=== PATIENT | male | born 1955 | race African-American/Black ===

== ENCOUNTER 2022-01-09 17:58 | Emergency (ER) | payer OTHER, MEDICAID ==
[~2022-01-09] VITALS: Ht 177.8 cm; Wt 60.8 kg
[~2022-01-09 17:58] MED LIST: DILT60TA3 PO; LACT1CAP58 PO; POTA-197 PO; PRO40 PO; TAMS-11 PO; TRAM50TA2 PO
[2022-01-09 18:00] VITALS: BP_SYST 121
[2022-01-09] MEDS ORDERED: NACL 0.9% 1,000 ML IV ONE (18:15)
[2022-01-09 19:11] LABS: HEMATOCRIT 27.8 % (36-54); HEMOGLOBIN 9.4 g/dL (14.0-18.0); MEAN CORPUSCULAR HEMOGLOBIN 32 pg (27-31); MEAN CORPUSCULAR HGB CONC 34 % (32-36); MEAN CORPUSCULAR VOLUME 94 fL (79.0-98.0); PLATELET COUNT (AUTO) 391 K/uL (130-430); RED BLOOD CELL COUNT(AUTO) 2.98 MIL/uL (4.2-6.2); RED CELL DISTRIBUTION WIDTH 15.9 % (9.0-15.0)
[2022-01-09 19:23] LABS: CALCIUM 8.5 mg/dL (8.4-11.0); CREATININE 2.43 mg/dL (0.55-1.30)
[2022-01-09 19:27] LABS: ALBUMIN 2.2 g/dL (3.4-4.8); TOTAL BILIRUBIN 0.4 mg/dL (0.0-1.0)
[2022-01-09 19:30] LABS: POTASSIUM 4.6 mmol/L (3.5-5.1)
[2022-01-09 19:32] LABS: BAND % (MANUAL) 4 % (0-6); BASOPHILS % (MANUAL) 0 % (0-2); EOSINOPHILS % (MANUAL) 1 % (0-7); LYMPHOCYTES % (MANUAL) 10 % (20-46); MONOCYTES % (MANUAL) 4 % (0-11)
[2022-01-09] MEDS ORDERED: PIPERACILLIN/TAZOBACTAM 3.375 GM/VIAL (ZOSYN) IV ONE (20:11)
[2022-01-09] MEDS ORDERED: PIPERACILLIN/TAZO 3.375 GM in NS 50 ML IV ONE (20:15)
[2022-01-09] MEDS ORDERED: ACETAMINOPHEN 500 MG TABLET PO ONE (20:30)
[2022-01-09] MEDS ORDERED: DOCU-144 PO (20:41)
[2022-01-09] MEDS ORDERED: MELA5TAB21 PO (20:41)
[2022-01-09] MEDS ORDERED: HYDR-3610 PO (20:41)
[2022-01-10 02:21] VITALS: BP_SYST 118
== END 2022-01-10 02:17 | disposition short-term general hospital (02) ==
LOC: SED 17:58
DX: K52.9 Noninfective gastroenteritis and colitis, unspecified (principal); N17.9 Acute kidney failure, unspecified; E87.1 Hypo-osmolality and hyponatremia; Z85.048 Personal history of other malignant neoplasm of rectum, rectosigmoid junction, and anus; Z79.899 Other long term (current) drug therapy; Z20.822 Contact with and (suspected) exposure to COVID-19
CPT/HCPCS: 36415; 71045; 74176; 76376; 80053; 83605; 85007; 85027; 87040; 87426; 96361; 96365; 99285; J2543; J7030